=== PATIENT | male | born 1955 | race Caucasian/White ===

== ENCOUNTER 2016-11-26 16:46 | Emergency (ER) | payer BC ==
[~2016-11-26] VITALS: Ht 185.4 cm; Wt 63.5 kg
--- NOTE | ~2016-11-26 | EKG ---
[place] [address] [facility] [place] [address] ELECTROCARDIOGRAM REPORT Name: JOANNA CHANDLER Room #: DEP Bella#: [id number] Admission: 11/26/16 Attend Phys: Discharge: 11/26/16 Date of : 51 Report #: [id number] THIS REPORT FOR: //name// [facility] ED Test Date: 2016-11-26 Test Time: 17:42:45 Pat Name: JOANNA CHANDLER Department: Room: Gender: [employer] Shift Superintendent: tammy : 1955 Requested By: Sabine Guzman Order Number: [id number] MD: Bennett Robles Measurements Intervals [place] Rate: 84 P: 74 [place]: 150 QRS: 56 QRSD: 84 T: 57 QT: 339 QTc: 401 Interpretive Statements Sinus rhythm Tall T, consider metabolic/ischemic abnrm Compared to ECG 09/30/2016 08:43:05 No significant change was found Electronically Signed On 11-27-2016 7:53:26 CDT by Bennett Robles [email or web address] <ELECTRONICALLY SIGNED> By: Bennett Robles MD, [facility] 11/27/16 0753 41 41 Bennett Robles MD, [facility] /EPI
[~2016-11-26 16:46] MED LIST: CLONIDINE HCL0.1 MG PO; CLONIDINE0.1 PO; ESCITALOPRAM OX10 MG PO; FLOMAX0.4 MG PO; HYDROCODONE-AP1 EAC6 PO; IBUPROFEN 600600 M1 PO; KEFLEX500 MG PO; MAGOX 400400 MG PO; METOPROLOL SUCC50 MG PO; NOHOMEMEDICATIONS; NORCO 5-325 TA1 EACH PO; PEPCID20 MG PO; PERCOCET 5-3251 EACH PO; PREDNISONE 20 M20 MG PO; TAMSULOSIN HCL0.4 MG PO; TOPROL XL50 MG PO; ULTRAM 50MG TAB50 MG PO; VENTOLIN HFA 1818 GM INH; ZOFRAN ODT4 MG PO
[2016-11-26 17:48] LABS: HEMATOCRIT 42.1 % (42.0-52.0); HEMOGLOBIN 14.4 gm/dL (14.0-18.0); MCHC 34.2 g/dL (28.0-37.0); MCV 96.4 fL (80.0-100.0); PLATELET COUNT 240 thou/uL (150-400); RBC 4.36 mil/uL (4.50-6.00); WBC 7.9 thou/uL (4.0-11.0)
[2016-11-26 18:01] LABS: MANUAL DIFF YES
[2016-11-26 18:36] LABS: ABSOLUTE NEUTROPHILS 4.9 thou/uL (1.4-8.2); TOTAL CELL COUNT 100
[2016-11-26 18:43] LABS: CALCIUM 9.7 mg/dL (8.5-10.1); POTASSIUM 4.3 mmol/L (3.5-5.1)
== END 2016-11-26 19:48 | disposition home or self-care (01) ==
LOC: ER 16:46
PROVIDERS: Emergency Medicine
DX: I10 Essential (primary) hypertension (principal); F17.210 Nicotine dependence, cigarettes, uncomplicated; Z87.442 Personal history of urinary calculi

== ENCOUNTER 2016-12-04 08:46 | Emergency (ER) | payer BC ==
[~2016-12-04] VITALS: Ht 185.4 cm; Wt 63.5 kg
--- NOTE | ~2016-12-04 | EKG ---
[address] [place] [address] ELECTROCARDIOGRAM REPORT Name: JOANNA CHANDLER Room #: DEP Bella#: [id number] Admission: 12/04/16 Attend Phys: Discharge: 12/04/16 Date of : 51 Report #: [id number] THIS REPORT FOR: //name// [facility] ED Test Date: 2016-12-04 Test Time: 09:08:59 Pat Name: JOANNA CHANDLER Department: Room: Gender: M Road Contractor: Dave OLIVEIRA : 1955 Requested By: John Paul Sultana Order Number: [id number] MD: Bennett Robles Measurements Intervals [place] Rate: 89 P: 74 [place]: 148 QRS: 55 QRSD: 92 T: 60 QT: 341 QTc: 415 Interpretive Statements Sinus rhythm ST elevation suggests acute pericarditis Compared to ECG 11/26/2016 17:42:45 ST (T wave) deviation now present Electronically Signed On 12-05-2016 8:09:57 CDT by Bennett Robles [email or web address] <ELECTRONICALLY SIGNED> By: Bennett Robles MD, [facility] 12/05/16 [phone] 09 Bennett Robles MD, [facility] /EPI
[2016-12-04 09:13] LABS: ABSOLUTE NEUTROPHILS 4.3 thou/uL (1.4-8.2); BASOPHILS 1.3 % (0.0-2.0); EOSINOPHILS 3.9 % (0.0-3.0); HEMATOCRIT 42.6 % (42.0-52.0); HEMOGLOBIN 14.6 gm/dL (14.0-18.0); MCH 32.8 pg (26.0-34.0); MCHC 34.3 g/dL (28.0-37.0); MCV 95.6 fL (80.0-100.0); MONOCYTES 6.4 % (1.0-8.0); PLATELET COUNT 278 thou/uL (150-400); POLYS 62.4 % (36.0-66.0); RBC 4.45 mil/uL (4.50-6.00); WBC 6.9 thou/uL (4.0-11.0)
[2016-12-04 09:15] LABS: MANUAL DIFF NO
[2016-12-04 09:28] LABS: ANION GAP 12 mmol/L (7-16); BUN 10 mg/dL (7-18); CALCIUM 10.3 mg/dL (8.5-10.1); CHLORIDE 97 mmol/L (98-107); CO2 26 mmol/L (21-32); GLUCOSE 93 mg/dL (74-106); POTASSIUM 4.9 mmol/L (3.5-5.1); SODIUM 135 mmol/L (136-145)
[2016-12-04] MEDS ORDERED: COZAAR 50 MG TA50 M2 PO (09:30)
[2016-12-04 09:36] LABS: ALBUMIN 4.1 g/dL (3.4-5.0); ALKALINE PHOSPHATASE 81 U/L (46-116); SGOT 33 U/L (15-37); SGPT 37 U/L (30-65); TOTAL BILIRUBIN 0.8 mg/dL (<0.1-1.0); TOTAL PROTEIN 8.2 g/dL (6.4-8.2); TROPONIN-I < 0.04 ng/mL (<0.04-0.07)
== END 2016-12-04 10:22 | disposition home or self-care (01) ==
LOC: ER 08:46
PROVIDERS: Physician Assistant
DX: I10 Essential (primary) hypertension (principal); F10.99 Alcohol use, unspecified with unspecified alcohol-induced disorder; Z91.14 Patient's other noncompliance with medication regimen; Z71.6 Tobacco abuse counseling; Z72.0 Tobacco use; Z87.442 Personal history of urinary calculi; Z98.890 Other specified postprocedural states

== ENCOUNTER 2016-12-08 12:15 | Emergency (ER) | payer BC ==
[~2016-12-08] VITALS: Ht 185.4 cm; Wt 63.5 kg
--- NOTE | ~2016-12-08 | EKG ---
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 12/08/16 1605 1300 1300 Bennett Robles MD, [facility] /EPI
[~2016-12-08 12:15] MED LIST changes: +COZAAR 50 MG TA50 M2 PO
[2016-12-08] MEDS ORDERED: CLONIDINE0.1 PO (13:19)
== END 2016-12-08 13:44 | disposition home or self-care (01) ==
LOC: ER 12:15
DX: I10 Essential (primary) hypertension (principal); F17.210 Nicotine dependence, cigarettes, uncomplicated; F10.10 Alcohol abuse, uncomplicated; Z87.442 Personal history of urinary calculi

== ENCOUNTER 2017-01-01 13:06 | Emergency (ER) | payer BC ==
[~2017-01-01] VITALS: Ht 185.4 cm; Wt 63.5 kg
[2017-01-01 13:42] LABS: EOSINOPHILS 2.8 % (0.0-3.0); HEMATOCRIT 40.3 % (42.0-52.0); HEMOGLOBIN 13.7 gm/dL (14.0-18.0); LYMPHOCYTES 25.9 % (24.0-44.0); MCH 32.7 pg (26.0-34.0); MCHC 34.1 g/dL (28.0-37.0); MONOCYTES 7.6 % (1.0-8.0); PLATELET COUNT 235 thou/uL (150-400); POLYS 62.7 % (36.0-66.0); RDW 13.8 % (10.5-14.5)
[2017-01-01 13:52] LABS: CALCIUM 9.6 mg/dL (8.5-10.1); CREATININE 0.8 mg/dL (0.7-1.3); POTASSIUM 4.1 mmol/L (3.5-5.1)
[2017-01-01 13:55] LABS: MANUAL DIFF NO
[2017-01-01 13:57] LABS: ALBUMIN 3.8 g/dL (3.4-5.0); TOTAL BILIRUBIN 0.8 mg/dL (<0.1-1.0); TOTAL PROTEIN 7.8 g/dL (6.4-8.2)
[2017-01-01] MEDS ORDERED: CLONIDINE HCL0.2 M2 PO (14:05)
[2017-01-01] MEDS ORDERED: MOBIC15 MG PO (15:25)
== END 2017-01-01 15:53 | disposition home or self-care (01) ==
LOC: ER 13:06
PROVIDERS: Physician Assistant
DX: K40.90 Unilateral inguinal hernia, without obstruction or gangrene, not specified as recurrent (principal); I10 Essential (primary) hypertension; Z95.1 Presence of aortocoronary bypass graft; Z87.442 Personal history of urinary calculi; F17.210 Nicotine dependence, cigarettes, uncomplicated; F10.99 Alcohol use, unspecified with unspecified alcohol-induced disorder

== ENCOUNTER 2017-01-14 06:48 | Inpatient (IN) | payer BC ==
[~2017-01-14] VITALS: Ht 185.4 cm; Wt 63.5 kg
--- NOTE | ~2017-01-14 | O ---
[facility] [place] [address] OPERATIVE REPORT Name: JOANNA CHANDLER Room #: 458-P [facility] IN M.R.#: [id number] Admission: 01/14/17 Attend Phys: Juan Carlos Senior MD, F Discharge: 01/16/17 Date of : 51 Report #: [id number] THIS REPORT FOR: //name// CC: Juan Carlos Blanco MD DATE OF SERVICE: 01/14/2017 PREOPERATIVE DIAGNOSIS: Left inguinal hernia. POSTOPERATIVE DIAGNOSIS: Left direct inguinal hernia with cord lipoma. PROCEDURE: Open repair of left inguinal hernia with placement of Surgimesh patch. SURGEON: Juan Carlos Senior M.D. DESKTOP PUBLISHING SPECIALIST: Isabela Bains MS4. INDICATIONS: A 61-year-old male who has developed a left inguinal hernia during the last 2-4 weeks. The patient has a heavy and lengthy cigarette smoking history as well as admitting to a 6 pack of beer per day for greater than 20 years. The patient desires repair and consideration for a spinal anesthetic with local anesthesia is best for the patient's lengthy history of alcohol and cigarette smoking. OPERATIVE PROCEDURE: The patient had thorough discussion of procedure, benefits and risks. He gave informed consent to proceed. He was brought to the operating room suite and had a spinal anesthetic performed. He was placed in a supine position. After appropriate timing, evaluation of his paraesthesia level was not satisfactory. He still had some sensation at the level of the left inguinal canal. 0.5% plain Naropin was utilized, 30 mL was utilized initially. After the sterile draping and prep was completed, an appropriate timeout had been performed. The local anesthetic was infused. A 6-8 cm transverse inguinal canal incision was performed. The patient's spinal anesthetic was not appropriate and after continued movement on the table, the operative decision was performed to allow anesthesia to perform a laryngeal mask anesthesia, which was performed. Resumption of operation took place with dissection down to the external oblique fascia. Naropin was injected through the external oblique fascia. The external oblique fascia was opened at the level of the external inguinal canal. The cord structures were controlled. A large lipoma was adjacent to the cord structures. This was transected and sent for histologic evaluation. No indirect hernia sac was present at the level of the internal ring. The floor of the inguinal canal consistent with a defect and weakness for a direct hernia was present. The Surgimesh was then placed already [facility] and [facility] [address] [place] [address] OPERATIVE REPORT Name: JOANNA CHANDLER Room #: 458-P [facility] IN M.R.#: [id number] Admission: 01/14/17 Attend Phys: Juan Carlos Senior MD, F Discharge: 01/16/17 Date of : 51 Report #: [id number] preformed, was sutured to the symphysis pubis and the shelving border of the inguinal ligament with 0 Prolene suture. The suture was run laterally and was sutured to Dave's ligament as well as the Poupart's ligament laterally. The cord structures were brought out through the notch in the mesh. The patch was sutured medially to symphysis pubis and the lateral border of the rectus sheath transitioning onto transversus abdominis muscle laterally. Laterally, the 2 ends of the patch were sutured together. After this was completed, there was easy one fingertip introduction for the reconstructed and reinforced internal ring. The external oblique was then approximated with a running 2-0 PDS suture. Zeny's fascia was approximated with running 3-0 Vicryl. The more superficial subcutaneous tissue was approximated with running 3-0 Vicryl. Skin margins were then approximated with subcuticular 4-0 Monocryl suture. Dermabond was applied. The drapes were removed and the left testicle was well down the scrotum. With completion of repair, the patient subsequently returned to recovery room in stable and satisfactory condition. By: 1744 1832 Juan Carlos Senior MD, FACS /nt
--- NOTE | ~2017-01-14 | S ---
[facility] [place] [address] SURGICAL PATH RPT PROCEDURE Name: HORACIO LADD Room #: 458-P ADM IN M.R.#: [id number] Admission: 01/14/17 Date of : 51 Discharge: Report #: [id number] Path Case #: [id number] PATHOLOGY REPORT COLLECTION DATE: 01/14/2017 RECEIVED DATE: 01/15/2017 SUBMITTING PHYS: Dr. Juan Carlos Senior OTHER PHYS: Dr. Barry Blanco SPECIMEN(S) RECEIVED: A.Hernia contents left inguinal with cord lipoma * * * * * * * * * * * * FINAL DIAGNOSIS: A. Hernia contents left inguinal with cord lipoma, repair: - Mature adipose tissue compatible with a lipoma, clinically cord lipoma. PATHOLOGIST: Bernadine Syed M.D. REPORT ELECTRONICALLY SIGNED BY: Bernadine Syed M.D. DATE/TIME: 01/16/2017 15:19 * * * * * * * * * * * * GROSS PATHOLOGY: The specimen is received in formalin, labeled "Horacio Ladd hernia contents, left inguinal with cord lipoma". Received are multiple well-circumscribed segment of bright yellow, lobulated adipose tissue ranging in size from 2.5 cm to 3.1 cm. Sectioning reveals a bright yellow, lobulated adipose cut surface with no solid masses or nodules identified. Wire Stockkeeper sections are submitted in cassette A1. (SNA; 01/15/2017) CLINICAL HISTORY: Left inguinal hernia INITIAL CPT CODE(S): 58532 Professional services performed by [facility] at [facility] [address] [place] [address] Technical services performed by [facility] at [address] [place] [id number]. [facility] [address] [place] [address] SURGICAL PATH RPT PROCEDURE Name: HORACIO LADD [place] Room #: 458-P ADM IN M.R.#: [id number] Admission: 01/14/17 Date of : 51 Discharge: Report #: [id number] Path Case #: [id number] [address] PHONE: [phone] DIRECTOR: Albaro Mejia M.D. * * * END OF REPORT * * *
[~2017-01-14 06:48] MED LIST changes: +CLONIDINE HCL0.2 M2 PO; +LEXAPRO 10 MG T10 MG PO; +MELOXICAM15 MG PO; +MOBIC15 MG PO
[2017-01-14 11:12] VITALS: BP 167/89
[2017-01-14 11:13] LABS: HEMOGLOBIN 14.5 gm/dL (14.0-18.0); MCH 32.6 pg (26.0-34.0); MCHC 33.7 g/dL (28.0-37.0); MCV 96.7 fL (80.0-100.0); RBC 4.45 mil/uL (4.50-6.00); RDW 13.8 % (10.5-14.5); WBC 8.8 thou/uL (4.0-11.0)
[2017-01-14 11:41] LABS: CALCIUM 10.1 mg/dL (8.5-10.1); CREATININE 1.2 mg/dL (0.7-1.3); POTASSIUM 3.7 mmol/L (3.5-5.1)
[2017-01-14 11:45] LABS: ALBUMIN 4.2 g/dL (3.4-5.0); TOTAL BILIRUBIN 1.9 mg/dL (<0.1-1.0); TOTAL PROTEIN 8.7 g/dL (6.4-8.2)
[2017-01-14 18:15] VITALS: BP 178/94
[2017-01-14 18:30] VITALS: BP 156/91
[2017-01-14 18:57] VITALS: BP 169/92
[2017-01-14 20:00] VITALS: BP 137/80
[2017-01-14 20:07] LABS: HEMATOCRIT 38.1 % (42.0-52.0); MANUAL DIFF YES; MCH 32.6 pg (26.0-34.0); MCHC 34.1 g/dL (28.0-37.0); MCV 95.7 fL (80.0-100.0); PLATELET COUNT 225 thou/uL (150-400); RBC 3.98 mil/uL (4.50-6.00); RDW 13.9 % (10.5-14.5); WBC 6.9 thou/uL (4.0-11.0)
[2017-01-14 20:35] LABS: MAGNESIUM 1.3 mg/dL (1.8-2.4); PHOSPHORUS 4.6 mg/dL (2.5-4.9)
[2017-01-14 21:00] VITALS: BP 145/84
[2017-01-14 21:05] LABS: ABSOLUTE NEUTROPHILS 5.9 thou/uL (1.4-8.2); ANISOCYTOSIS 1+; ATYPICAL LYMPHS 1 %; TOTAL CELL COUNT 100
[2017-01-14 21:37] LABS: FOLIC ACID 39.7 ng/mL (8.6-58.9)
[2017-01-14 23:15] LABS: URINE BILIRUBIN NEGATIVE (Negative); URINE BLOOD NEGATIVE (Negative); URINE COLOR YELLOW; URINE GLUCOSE-RANDOM* TRACE (Negative); URINE KETONES TRACE (Negative); URINE NITRITE NEGATIVE (Negative); URINE PROTEIN (DIPSTICK) NEGATIVE (Negative); URINE UROBILINOGEN 0.2 E.U./dl (0.2-1.0)
[2017-01-14 23:34] LABS: AMP/METHAMP Negative (Negative); BARBITURATES Negative (Negative); BENZODIAZEPINES POSITIVE (Negative); COCAINE Negative (Negative); METHADONE Negative (Negative); OPIATES POSITIVE (Negative); PCP Negative (Negative); THC Negative (Negative)
[2017-01-15] VITALS: BP 144/86
[2017-01-15 03:22] VITALS: BP 161/78
[2017-01-15 07:08] VITALS: BP 152/87; BP 52/87
[2017-01-15 07:11] LABS: FREE T4 1.72 ng/dL (0.82-1.77)
[2017-01-15 11:02] VITALS: BP 139/79
[2017-01-15 14:59] VITALS: BP 156/85
[2017-01-15 20:14] VITALS: BP 158/81
[2017-01-16 04:00] VITALS: BP 129/83
[2017-01-16 06:27] LABS: ABSOLUTE NEUTROPHILS 4.9 thou/uL (1.4-8.2); BASOPHILS 0.5 % (0.0-2.0); EOSINOPHILS 2.2 % (0.0-3.0); HEMATOCRIT 35.2 % (42.0-52.0); HEMOGLOBIN 11.8 gm/dL (14.0-18.0); LYMPHOCYTES 19.9 % (24.0-44.0); MCH 32.4 pg (26.0-34.0); MCHC 33.4 g/dL (28.0-37.0); MCV 96.9 fL (80.0-100.0); MONOCYTES 8.1 % (1.0-8.0); PLATELET COUNT 201 thou/uL (150-400); POLYS 69.3 % (36.0-66.0); RBC 3.64 mil/uL (4.50-6.00); RDW 13.7 % (10.5-14.5); WBC 7.1 thou/uL (4.0-11.0)
[2017-01-16 06:31] LABS: MANUAL DIFF NO
[2017-01-16 06:45] LABS: CALCIUM 8.7 mg/dL (8.5-10.1); CREATININE 0.8 mg/dL (0.7-1.3); MAGNESIUM 1.8 mg/dL (1.8-2.4); PHOSPHORUS 3.8 mg/dL (2.5-4.9); POTASSIUM 3.8 mmol/L (3.5-5.1)
[2017-01-16 07:10] VITALS: BP 140/80
[2017-01-16 14:10] VITALS: BP 140/80
== END 2017-01-16 15:22 | disposition home or self-care (01) | DRG 351 ==
LOC: TBA 06:48 → 4W 06:48 → OR 06:48 → TBA 06:49 → OR 09:29 → 4W 17:12
PROVIDERS: Family Medicine; Internal Medicine Geriatric Medicine; Otolaryngology
PROC: 0YU60JZ Supplement Left Inguinal Region with Synthetic Substitute, Open Approach (ICD-10-PCS; principal; 2017-01-14)
DX: K40.90 Unilateral inguinal hernia, without obstruction or gangrene, not specified as recurrent (principal); F10.239 Alcohol dependence with withdrawal, unspecified; F17.210 Nicotine dependence, cigarettes, uncomplicated; D17.6 Benign lipomatous neoplasm of spermatic cord; I10 Essential (primary) hypertension; I73.9 Peripheral vascular disease, unspecified; F32.9 Major depressive disorder, single episode, unspecified; F41.9 Anxiety disorder, unspecified; J44.9 Chronic obstructive pulmonary disease, unspecified; Y90.0 Blood alcohol level of less than 20 mg/100 ml; Z79.899 Other long term (current) drug therapy; Z81.1 Family history of alcohol abuse and dependence; Z95.1 Presence of aortocoronary bypass graft; Z82.49 Family history of ischemic heart disease and other diseases of the circulatory system
CPT/HCPCS: 10047; 50010; 50101; 50386; 50403; 50788; 54118; 56524; 56525; 56526; 62110; 62900; 64037; 70005

== ENCOUNTER 2018-11-24 22:14 | Emergency (ER) | payer OTHER ==
[~2018-11-24] VITALS: Ht 185.4 cm; Wt 63.5 kg
[2018-11-24 23:01] LABS: ABSOLUTE NEUTROPHILS 7.1 thou/uL (1.4-8.2); BASOPHILS 0.8 % (0.0-2.0); EOSINOPHILS 1.7 % (0.0-3.0); HEMATOCRIT 47.2 % (42.0-52.0); HEMOGLOBIN 16.3 gm/dL (14.0-18.0); LYMPHOCYTES 17.6 % (24.0-44.0); MCH 33.5 pg (26.0-34.0); MCHC 34.6 g/dL (28.0-37.0); MCV 96.8 fL (80.0-100.0); MONOCYTES 6.4 % (1.0-8.0); PLATELET COUNT 246 thou/uL (150-400); POLYS 73.5 % (36.0-66.0); RBC 4.87 mil/uL (4.50-6.00); RDW 14.2 % (10.5-14.5); WBC 9.7 thou/uL (4.0-11.0)
[2018-11-24 23:18] LABS: CREATININE 0.7 mg/dL (0.7-1.3); POTASSIUM 4.1 mmol/L (3.5-5.1)
[2018-11-24 23:23] LABS: ALBUMIN 3.5 g/dL (3.4-5.0); TOTAL BILIRUBIN 1.6 mg/dL (<0.1-1.0); TOTAL PROTEIN 7.5 g/dL (6.4-8.2)
[2018-11-25 02:29] LABS: AMP/METHAMP Negative (Negative); BARBITURATES Negative (Negative); BENZODIAZEPINES Negative (Negative); COCAINE Negative (Negative); METHADONE Negative (Negative); OPIATES Negative (Negative); PCP Negative (Negative)
[2018-11-25 04:00] VITALS: BP 154/94
[2018-11-25 04:05] LABS: URINE BILIRUBIN NEGATIVE (Negative); URINE BLOOD NEGATIVE (Negative); URINE CLARITY CLEAR; URINE COLOR YELLOW; URINE GLUCOSE-RANDOM* NEGATIVE (Negative); URINE KETONES NEGATIVE (Negative); URINE LEUKOCYTES NEGATIVE (Negative); URINE NITRITE NEGATIVE (Negative); URINE PROTEIN (DIPSTICK) NEGATIVE (Negative); URINE SPECIFIC GRAVITY <= 1.005 (1.005-1.035); URINE UROBILINOGEN 0.2 E.U./dl (0.2-1.0)
[2018-11-25] MEDS ORDERED: CLONIDINE0.1 PO (04:10)
[2018-11-25] MEDS ORDERED: COZAAR 50 MG TA50 M1 PO (04:10)
[2018-11-25] MEDS ORDERED: ZOFRAN4 MG PO (04:14)
--- NOTE | 2018-11-25 08:14 | EKG ---
[place] [address] [facility] [employer] [place] [address] ELECTROCARDIOGRAM REPORT Name: JOANNA CHANDLER Room #: DEP Bella#: [id number] ������������������ Admission: 11/24/18 ������������������ Attend Phys: Discharge: 11/25/18 ������������������ Date of : 51 Report #: [id number] ����������������������������������������������������������������� [id number] THIS REPORT FOR: //name// [facility] ED Test Date: 2018-11-24 Test Time: 22:36:37 Pat Name: JOANNA CHANDLER Department: Room: Gender: M Business Solution Analyst: SARITHA : 1955 Requested By: Rola Cohen Order Number: [id number] MD: Devan Jimenez Measurements Intervals [place] Rate: 87 P: 73 [place]: 151 QRS: 57 QRSD: 84 T: 60 QT: 373 QTc: 449 Interpretive Statements Sinus rhythm Consider left ventricular hypertrophy Tall T, similar to prior EKG Compared to ECG 01/26/2017 21:17:41 Sinus tachycardia no longer present T-wave abnormality still present Electronically Signed On 11-25-2018 8:14:06 CDT by Devan Jimenez [email or web address] ��������������������������������������������� <ELECTRONICALLY SIGNED> ���������������������������������������� By: Devan Jimenez MD ��������������������������������������������� 11/25/18813 35 35 Devan Jimenez MD /DARON
== END 2018-11-25 04:00 | disposition home or self-care (01) ==
LOC: ER 22:14
PROVIDERS: Student in an Organized Health Care Education/Training Program
DX: I10 Essential (primary) hypertension (principal); N20.0 Calculus of kidney; J44.9 Chronic obstructive pulmonary disease, unspecified; I73.9 Peripheral vascular disease, unspecified; F17.210 Nicotine dependence, cigarettes, uncomplicated; Z95.5 Presence of coronary angioplasty implant and graft